=== PATIENT | female | born 1955 | race African-American/Black ===

== ENCOUNTER 2016-11-19 10:07 | Emergency (ER) | payer MEDICARE, MEDICAID ==
[~2016-11-19] VITALS: Ht 165.1 cm; Wt 85.0 kg
[~2016-11-19 10:07] MED LIST: AMLO5TAB88; BENA20TA3; HYDR25TA; PARO-41; ZOLP10TA6
[2016-11-19] MEDS ORDERED: TRAMADOL 50MG TABLET PO ONE (10:30)
[2016-11-19 10:42] VITALS: BP 130/81
== END 2016-11-19 11:52 | disposition home or self-care (01) ==
LOC: ER 11:00
DX: M79.671 Pain in right foot (principal); I10 Essential (primary) hypertension; J45.909 Unspecified asthma, uncomplicated; F32.9 Major depressive disorder, single episode, unspecified; G89.29 Other chronic pain; M54.5 Low back pain; Z88.0 Allergy status to penicillin; Z90.710 Acquired absence of both cervix and uterus; Z96.653 Presence of artificial knee joint, bilateral; Z98.890 Other specified postprocedural states
CPT/HCPCS: 73630; 99284

== ENCOUNTER 2022-04-11 15:09 | Emergency (ER) | payer MEDICARE, MEDICAID ==
[~2022-04-11] VITALS: Ht 167.6 cm; Wt 82.0 kg
[~2022-04-11 15:09] MED LIST changes: +BENA-8; -BENA20TA3
[2022-04-11 16:00] VITALS: BP 119/77
[2022-04-11] MEDS ORDERED: IBUPROFEN 600MG TABLET PO STA (18:39)
[2022-04-11] MEDS ORDERED: IBUP-2029 MT (20:16)
[2022-04-11] MEDS ORDERED: CIPR3.5O LEFTEYE (20:16)
== END 2022-04-11 20:48 | disposition home or self-care (01) ==
LOC: ER 15:09
DX: R51.9 Headache, unspecified (principal); H10.9 Unspecified conjunctivitis; I10 Essential (primary) hypertension; J44.9 Chronic obstructive pulmonary disease, unspecified; Z88.0 Allergy status to penicillin; Z88.6 Allergy status to analgesic agent; Z90.710 Acquired absence of both cervix and uterus; Z96.659 Presence of unspecified artificial knee joint
CPT/HCPCS: 99284